=== PATIENT | female | born 1955 | race Caucasian/White ===

== ENCOUNTER 2020-05-05 17:02 | Emergency (ER) | payer OTHER ==
[2020-05-05] MEDS ORDERED: Ketorolac 60 MG/2 ML SDV IM ONE (17:34)
--- NOTE | 2020-05-05 17:40 | EDM.PDOC ---
ED HPI GENERAL MEDICAL PROBLEM - General Chief Complaint: Upper Extremity Injury/Pain Stated Complaint: NECK, FACE (R) PAIN FROM FALL Time Seen by Provider: 05/05/20 17:25 Source of Information: Reports: Patient, Old Records, RN History Limitations: Reports: No Limitations - History of Present Illness INITIAL COMMENTS - FREE TEXT/NARRATIVE: 64 yo female fell down her stairs today just before arrival. No LOC or vomiting. No ROJAS. Does report her worst pain as being in her neck, but also has L knee pain(able to ambulate) and L hand pain. Hit her R forehead in the fall. Is fully alert since the incident. Here with her . UTD on tetanus. Onset: Today, Sudden Onset Date: 05/05/20 Duration: Minutes:, Constant Location: Reports: Face, Neck, Upper Extremity, Right, Lower Extremity, Right Quality: Reports: Ache Severity: Moderate Improves with: Reports: Rest Worsens with: Reports: Movement Context: Reports: Trauma Associated Symptoms: Reports: No Other Symptoms. 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: - Past Surgical History HEENT Surgical History: Reports: Tonsillectomy Female Surgical History: Reports: Section, Lithotripsy/ESWL Social & Family History - Tobacco Use Tobacco Use Status *Q: Never Tobacco User - Caffeine Use Caffeine Use: Reports: Coffee - Recreational Drug Use Recreational Drug Use: No Review of Systems - Review of Systems Review Of Systems: See Below Constitutional: Reports: No Symptoms Eyes: Reports: No Symptoms Ears: Reports: No Symptoms Nose: Reports: No Symptoms Mouth/Throat: Reports: No Symptoms Respiratory: Reports: No Symptoms Cardiovascular: Reports: No Symptoms GI/Abdominal: Reports: No Symptoms Genitourinary: Reports: No Symptoms Musculoskeletal: Reports: Neck Pain, Hand Pain (Right, mild), Joint Pain (R knee, moderate) Skin: Reports: Erythema (with superficial abrasions of R brow area and R anterior knee) ED EXAM, GENERAL - Physical Exam Exam: See Below Exam Limited By: No Limitations General Appearance: Alert, WD/WN, No Apparent Distress Eye Exam: Bilateral Eye: EOMI, Normal Inspection, PERRL Ears: Normal External Exam, Normal Canal, Hearing Grossly Normal Ear Exam: Bilateral Ear: Auricle Normal, Canal Normal Nose: Normal Inspection, No Blood Throat/Mouth: Normal Inspection, Normal Lips, Normal Voice, No Airway Compromise Head: Normocephalic, Facial Swelling (R lateral brow area tender and slightly swollen.) Neck: Normal Inspection, Other (good, but not full ROM). No: Non-Tender Respiratory/Chest: No Respiratory Distress, No Accessory Muscle Use Cardiovascular: Regular Rate, Rhythm Back Exam: Normal Inspection Extremities: Pedal Edema (R knee slightly swollen, but good ROM present.), Other (R hand mildly tender, but full ROM and no visible sign of injury. ) Neurological: Alert, Oriented, CN II-XII Intact, Normal Cognition, No Motor/Sensory Deficits Psychiatric: Normal Affect, Normal Mood Skin Exam: Warm, Dry, No Rash, Other (abrasions R lateral brow area and R anterior knee, both superficial. ) Course - Vital Signs Last Recorded V/S: Last Vital Signs Temp 36.7 C 05/05/20 17:13 Pulse 67 05/05/20 17:13 Resp 16 05/05/20 17:13 BP 133/56 L 05/05/20 17:13 Pulse Ox 95 05/05/20 17:13 - Orders/Labs/Meds Orders: Active Orders 24 hr Category Date Time Status Cervical Spine wo Cont [CT] Stat Exams 05/05/20 17:34 Taken Meds: Medications Discontinued Medications Generic Name Dose Route Start Last Admin Trade Name Brentq PRN Reason Stop Dose Admin Ketorolac Tromethamine 60 mg 05/05/20 17:34 05/05/20 17:54 Toradol IM 05/05/20 17:35 60 mg ONETIME ONE Administration - Radiology Interpretation Free Text/Narrative:: CT cervical spine- Impression: No evidence of acute fracture or dislocation of the cervical spine. Dictated by: Eric Roth MD @ 05/05/2020 18:23:32 CT Results Date: 05/05/20 CT Results Time: 18:25 Departure - Departure Time of Disposition: 18:30 Disposition: Home, Self-Care 01 Condition: Fair Clinical Impression: Abrasions of multiple sites Neck strain Qualifiers: Encounter type: initial encounter Qualified Code(s): S16.1XXA - Strain of muscle, fascia and tendon at neck level, initial encounter Contusion of face Qualifiers: Encounter type: initial encounter Qualified Code(s): S00.83XA - Contusion of other part of head, initial encounter Contusion of knee, right Qualifiers: Encounter type: initial encounter Qualified Code(s): S80.01XA - Contusion of right knee, initial encounter - Discharge Information *PRESCRIPTION DRUG MONITORING PROGRAM REVIEWED*: Not Applicable *COPY OF PRESCRIPTION DRUG MONITORING REPORT IN PATIENT [place]: Not Applicable Referrals: Greta Mock PA [Primary Care Provider] - Forms: ED Department Discharge Additional Instructions: Take acetaminophen as needed for pain relief. Add ibuprofen as needed for added relief, next dose after midnight as needed. Use Flexeril as needed for neck stiffness. Recheck as needed. Sepsis Event Note (ED) - Evaluation Sepsis Screening Result: No Definite Risk - Focused Exam Vital Signs: Vital Signs Temp Pulse Resp BP Pulse Ox 05/05/20 17:13 36.7 C 67 16 133/56 L 95 - My Orders Last 24 Hours: My Active Orders 05/05/20 17:34 Cervical Spine wo Cont [CT] Stat - Assessment/Plan Last 24 Hours: My Active Orders 05/05/20 17:34 Cervical Spine wo Cont [CT] Stat
--- NOTE | 2020-05-05 18:25 | CRLCT ---
INDICATION: fall. Technique: Non-contrast CT scan of the cervical spine with reformatted images obtained. Findings: Normal height and alignment of the cervical vertebral bodies. No evidence of acute fracture or dislocation. Degenerative changes in the lower cervical spine. No other abnormalities identified. Impression: No evidence of acute fracture or dislocation of the cervical spine. Dictated by: Eric Roth MD @ 05/05/2020 18:23:32 (Electronically Signed)
== END 2020-05-05 18:41 | disposition home or self-care (01) ==
LOC: JP.ED 17:02
DX: S16.1XXA Strain of muscle, fascia and tendon at neck level, initial encounter (principal); S00.83XA Contusion of other part of head, initial encounter; S80.01XA Contusion of right knee, initial encounter; M79.641 Pain in right hand; Z88.1 Allergy status to other antibiotic agents; W10.9XXA Fall (on) (from) unspecified stairs and steps, initial encounter
CPT/HCPCS: 72125; 96372; 99284; J1885; 99283